=== PATIENT | female | born 1940 | race Caucasian/White ===

== ENCOUNTER 2016-07-17 15:22 | Inpatient (IN) ==
[2016-07-17] MEDS ORDERED: Acetaminophen 325 MG TABLET PO PRN (16:18)
[2016-07-17] MEDS ORDERED: Ibuprofen 400 MG TABLET PO PRN (16:18)
[2016-07-17] MEDS ORDERED: Loratadine 10 MG TABLET PO PRN (16:23)
[2016-07-17] MEDS: *HR* Enoxaparin 30 MG/0.3 ML SYRINGE SQ SCH (21:21)
[2016-07-17] MEDS: *HR* OxyCODONE Immed Rel 5 MG TABLET PO PRN (21:26)
[2016-07-18] MEDS: *HR* Enoxaparin 30 MG/0.3 ML SYRINGE SQ SCH ×2 (06:36→18:55)
[2016-07-18] MEDS ORDERED: Aspirin 81 MG TAB.CHEW PO SCH (09:00)
[2016-07-18] MEDS ORDERED: [UNRECOGNIZED DRUG - OTHER] PO SCH (09:00)
[2016-07-18] MEDS ORDERED: Aspirin Enteric Coated 325 MG Tablet PO SCH (09:00)
[2016-07-18] MEDS ORDERED: Fluticasone Propionate Nasal 50 MCG/SPRAY BOTTLE NS SCH (09:00)
[2016-07-18] MEDS: Multivit/Ca/Min/Fe/FA 1 TAB TABLET PO SCH (10:39)
[2016-07-18] MEDS: *HR* OxyCODONE Immed Rel 5 MG TABLET PO PRN (10:39)
--- NOTE | 2016-07-18 15:30 | Internal Med History&Physical ---
Date of Encounter: 07/21/16 Time of Encounter: 14:55 Assessment and Plan (1) Degenerative arthritis of knee, bilateral Current visit: No Status: Acute Now status post bilateral TKR. Continue PT and OT interventions. Qualifiers: Osteoarthritis type: primary Qualified Code(s): M17.0 - Bilateral primary osteoarthritis of knee (2) Acute blood loss anemia Current visit: No Status: Acute We will monitor CBC. Use Lovenox for DVT prophylaxis and discontinue aspirin (3) Acute hyponatremia Current visit: No Status: Acute Monitor sodium level (4) Hypothyroidism Current visit: No Status: Acute TSH was normal at 0.730 on 07/16/2016. Continue present dose Synthroid. Qualifiers: Hypothyroidism type: unspecified Qualified Code(s): E03.9 - Hypothyroidism , unspecified Internal Medicine - H&P: HPI Chief complaint: Bilateral TKR Admitted From: Hospital to Hospital Transfer Plans for Post Hospital Care: Home History of present illness: Ms. Vela is a 76 year old female who underwent elective bilateral TKR at [facility] . Her postop course was notable for anemia requiring blood transfusion. She had hyponatremia which improved prior to discharge. She was stabilized and transferred to [facility] swing bed for rehabilitation therapy prior to returning home to independent living. She states her pain level is 7/10 at present. She has diagnoses of DJD and osteoporosis. She denies gout or previous orthopedic surgeries. Past Med Surg Social Fam HX - Past Medical History Medical history: hyperlipidemia, thyroid disease Psychiatric history: depression - Social History Smoking Status: Never smoker Smokeless Tobacco Status: No Alcohol use: occasionally Drug use: none - Family History Sister Living Status: Still Living Hx Family Endocrine Disorder: Yes (DM) Internal Medicine - H&P: Meds Aspirin Enteric Coated [Aspirin EC] 325 mg PO DAILY #21 tablet. 07/13/16 [Rx] Enoxaparin [Lovenox] 30 mg SQ Q12HR #20 syr 07/13/16 [Rx] OxyCODONE Immed Rel [Roxicodone 5 MG] 5 - 10 mg PO Q6HR PRN #40 tablet 07/13/16 [Rx] Acetaminophen [Tylenol Arthritis] 650 mg PO Q8H PRN 07/14/16 [History] Aspirin 81 mg PO DAILY 07/14/16 [History] Biotin 5 mg PO DAILY 07/14/16 [History] Budesonide [Rhinocort Allergy] 1 spr NS DAILY 07/14/16 [History] Cetirizine HCl [Zyrtec] 10 mg PO HS 07/14/16 [History] Citalopram [CeleXA] 20 mg PO DAILY 07/14/16 [History] Ibuprofen [Motrin] 200 mg PO Q4HR PRN 07/14/16 [History] Levothyroxine [Synthroid] 75 mcg PO 0630 07/14/16 [History] Multivits,Ca,Min/Iron/FA/Lycop [Centrum Men's Tablet] 1 each PO DAILY 07/14/16 [ History] Simvastatin [Zocor] 20 mg PO HS 07/14/16 [History] Allergies No Known Allergies Allergy (Verified 07/14/16 07:18) All Systems PM: A 10-system review of systems was performed and is negative for pertinent findings except as documented above in the HPI. Review of systems: Gen.: She states her weight has been stable past few months Cardiovascular: She denies AL hypertension heart failure angina DVT or pulmonary embolus Respiratory: She is a lifelong nonsmoker and has no known chronic lung disease GI: She denies disorders of her liver gallbladder or exocrine pancreas : She denies hematuria dysuria or kidney stones Neurologic: She denies large distribution strokes or seizures. Endocrine: She has hypothyroidism and hyperlipidemia but denies diabetes Hematology/oncology: She has history of anemia but denies internal malignancies Psychiatric: She has depression but denies anxiety or other mental health issues Musk skeletal: As per history of present illness - Constitutional Vitals: Temp Pulse Resp BP Pulse Ox 98.5 F 95 16 157/77 94 L 07/18/16 07:09 07/18/16 15:05 07/18/16 15:05 07/18/16 15:05 07/18/16 15:05 Exam: Gen.: She is a well-developed well nourished female lying quietly in bed who appears in no acute distress. HEENT: Head is atraumatic and normocephalic. Eyes: EOMI. There is no scleral icterus. Mouth: Mucosa is moist. Neck: Supple and nontender. There is no thyromegaly or adenopathy noted. Heart: Regular without murmurs gallops or ectopics. Lungs: No wheezes or crackles are heard. Abdomen: Soft and nontender. No masses or guarding noted. Extremities: She is wearing Cryo/Cuff on both knees. She has 1+ edema of the dorsum of the feet bilaterally. She has minimal DJD changes of her hands. Neurologic: Mental status: She is awake but lethargic. She is able to answer questions appropriately. Cranial nerves: Smile is symmetric. Forehead wrinkles bilaterally. Tongue protrudes midline. EOMI. Motor: There is no pronator drift. Cerebellar: Finger to nose is intact bilaterally. Skin: Warm and dry Internal Med - H&P Results - Labs CBC & Chem 7: 07/20/16 06:10
[2016-07-18] MEDS: Fluticasone Propionate Nasal 50 MCG/SPRAY BOTTLE NS SCH (21:01)
[2016-07-19] MEDS: *HR* Enoxaparin 30 MG/0.3 ML SYRINGE SQ SCH ×2 (06:14→18:38)
[2016-07-19] MEDS: Multivit/Ca/Min/Fe/FA 1 TAB TABLET PO SCH (08:23)
[2016-07-19] MEDS: MOM Conc 10 ML UD.LIQ PO PRN (18:38)
[2016-07-19] MEDS: Fluticasone Propionate Nasal 50 MCG/SPRAY BOTTLE NS SCH (22:48)
[2016-07-20] MEDS: *HR* OxyCODONE Immed Rel 5 MG TABLET PO PRN ×2 (04:56→21:35)
[2016-07-20] MEDS: *HR* Enoxaparin 30 MG/0.3 ML SYRINGE SQ SCH ×2 (06:35→17:53)
[2016-07-20 06:55] LABS: Basophils # 0.1 K/mcL (0.0-0.2); Basophils % 0.7 %; Eosinophils # 0.5 K/mcL (0.0-0.6); Hematocrit 25.5 % (35.3-44.9); Hemoglobin 8.7 g/dL (11.5-15.4); Immature Granulocytes % 2.6 % (0-4); Lymphocytes # 1.6 K/mcL (0.6-4.6); Mean Corpuscular HGB Conc 34.1 g/dL (31.6-35.5); Mean Corpuscular Hemoglobin 30.6 pg (28.0-33.3); Mean Corpuscular Volume 89.8 fL (83.0-100.0); Mean Platelet Volume 9.3 fL (9.4-12.4); Monocytes % 9.8 %; Neutrophils # 6.9 K/mcL (1.6-8.9); Platelet Count 308 K/mcL (140-400); Red Blood Count 2.84 M/mcL (3.82-4.97); Red Cell Distribution Width 14.4 % (11.5-14.5); Segmented Neutrophils % 66.9 %
[2016-07-20] MEDS: Multivit/Ca/Min/Fe/FA 1 TAB TABLET PO SCH (08:23)
[2016-07-20] MEDS: Fluticasone Propionate Nasal 50 MCG/SPRAY BOTTLE NS SCH ×2 (09:14→20:23)
--- NOTE | 2016-07-20 11:07 | Internal Med Progress Note ---
Date of Encounter: 07/21/16 Time of Encounter: 10:50 - Assessment and plan (1) Degenerative arthritis of knee, bilateral Current Visit: No Status: Acute Assessment and plan: July 20. Status post bilateral TKR. Continue PT and OT interventions. Follow up with orthopedist as directed Qualifiers: Osteoarthritis type: primary Qualified Code(s): M17.0 - Bilateral primary osteoarthritis of knee (2) Acute blood loss anemia Current Visit: No Status: Acute Assessment and plan: July 20. We will monitor CBC. Use Lovenox for DVT prophylaxis (3) Acute hyponatremia Current Visit: No Status: Acute Assessment and plan: July 20. We will monitor sodium level (4) Hypothyroidism Current Visit: No Status: Acute Assessment and plan: July 20. TSH was normal at 0.730 on 07/16/2016. Continue present dose Synthroid Qualifiers: Hypothyroidism type: unspecified Qualified Code(s): E03.9 - Hypothyroidism , unspecified - Subjective Interval history: July 20. She has no new complaints. She had a bowel movement today - Constitutional Vitals: Temp Pulse Resp BP Pulse Ox 98.2 F 88 18 159/71 95 07/20/16 07:39 07/20/16 07:39 07/20/16 07:39 07/20/16 07:39 07/20/16 07:39 Exam: She is resting comfortably in bed. The Cryo/Cuff's are removed at this time. She has expected evolutionary ecchymosis in her legs from recent surgery. Dressings are in place on the incisions and appear generally clean and dry. Her affect is bright and cheerful. I reviewed her medications and lab results. Internal Medicine: Result - Labs CBC & Chem 7: 07/20/16 06:10 Labs: Short CBC 07/20/16 Range/Units 06:10 WBC 10.3 (4.3-11.1) K/mcL Hgb 8.7 L (11.5-15.4) g/dL Hct 25.5 L (35.3-44.9) % Plt Count 308 D (140-400) K/mcL Neutrophils # 6.9 (1.6-8.9) K/mcL Consult Discharge Plan - Plan Referrals: NO,PCP [Primary Care Provider] - 1 week
[2016-07-21] MEDS: *HR* Enoxaparin 30 MG/0.3 ML SYRINGE SQ SCH ×2 (06:01→20:00)
[2016-07-21] MEDS: *HR* OxyCODONE Immed Rel 5 MG TABLET PO PRN ×3 (06:04→22:03)
[2016-07-21] MEDS: Multivit/Ca/Min/Fe/FA 1 TAB TABLET PO SCH (08:16)
[2016-07-21] MEDS: Fluticasone Propionate Nasal 50 MCG/SPRAY BOTTLE NS SCH (20:01)
[2016-07-22] MEDS: *HR* Enoxaparin 30 MG/0.3 ML SYRINGE SQ SCH ×2 (05:43→18:24)
[2016-07-22] MEDS: MOM Conc 10 ML UD.LIQ PO PRN (07:51)
[2016-07-22] MEDS: Multivit/Ca/Min/Fe/FA 1 TAB TABLET PO SCH (07:52)
[2016-07-22] MEDS: *HR* OxyCODONE Immed Rel 5 MG TABLET PO PRN (14:34)
--- NOTE | 2016-07-22 18:01 | Internal Med Progress Note ---
Date of Encounter: 07/22/16 Time of Encounter: 17:50 - Assessment and plan (1) Degenerative arthritis of knee, bilateral Current Visit: No Status: Acute Assessment and plan: July 20. Status post bilateral TKR. Continue PT and OT interventions. Follow up with orthopedist as directed July 22. She states she has an orthopedist appointment July 24. Qualifiers: Osteoarthritis type: primary Qualified Code(s): M17.0 - Bilateral primary osteoarthritis of knee (2) Acute blood loss anemia Current Visit: No Status: Acute Assessment and plan: July 20. We will monitor CBC. Use Lovenox for DVT prophylaxis July 22. We will check CBC in a.m. (3) Acute hyponatremia Current Visit: No Status: Acute Assessment and plan: July 20. We will monitor sodium level July 22. We will check chemistry profile in a.m. (4) Hypothyroidism Current Visit: No Status: Acute Assessment and plan: July 20. TSH was normal at 0.730 on 07/16/2016. Continue present dose Synthroid Qualifiers: Hypothyroidism type: unspecified Qualified Code(s): E03.9 - Hypothyroidism , unspecified - Subjective Interval history: July 20. She has no new complaints. She had a bowel movement today July 22. She has no new complaints. She states her pain has lessened. - Constitutional Vitals: Temp Pulse Resp BP Pulse Ox 98.5 F 83 16 161/64 90 L 07/22/16 06:32 07/22/16 07:46 07/22/16 07:46 07/22/16 07:46 07/22/16 08:11 Exam: She is resting comfortably in bed and appears in no acute distress. Her extremities show no pitting edema. Her affect is bright and cheerful. I reviewed her medications and lab results. Internal Medicine: Result - Labs CBC & Chem 7: 07/20/16 06:10 Consult Discharge Plan - Plan Referrals: NO,PCP [Primary Care Provider] - 1 week
[2016-07-22] MEDS: Fluticasone Propionate Nasal 50 MCG/SPRAY BOTTLE NS SCH (22:37)
[2016-07-23] MEDS: Fluticasone Propionate Nasal 50 MCG/SPRAY BOTTLE NS SCH ×2 (00:04→19:56)
[2016-07-23] MEDS: *HR* Enoxaparin 30 MG/0.3 ML SYRINGE SQ SCH ×2 (05:59→18:14)
[2016-07-23 06:29] LABS: Basophils % 0.4 %; Eosinophils # 0.5 K/mcL (0.0-0.6); Eosinophils % 4.3 %; Hematocrit 27.4 % (35.3-44.9); Hemoglobin 9.3 g/dL (11.5-15.4); Lymphocytes # 2.1 K/mcL (0.6-4.6); Mean Corpuscular HGB Conc 33.9 g/dL (31.6-35.5); Mean Corpuscular Hemoglobin 30.6 pg (28.0-33.3); Mean Corpuscular Volume 90.1 fL (83.0-100.0); Mean Platelet Volume 8.9 fL (9.4-12.4); Monocytes % 8.5 %; Platelet Count 514 K/mcL (140-400); Red Blood Count 3.04 M/mcL (3.82-4.97); Red Cell Distribution Width 14.7 % (11.5-14.5); Segmented Neutrophils % 63.8 %
[2016-07-23 06:58] LABS: Neutrophils # 7.2 K/mcL (1.6-8.9)
[2016-07-23 07:08] LABS: BUN/Creatinine Ratio 14 (6-26); Blood Urea Nitrogen 10 mg/dL (7-20); Calcium 9.1 mg/dL (8.6-10.8); Carbon Dioxide 23 mEq/L (19-29); Chloride 100 mEq/L (98-109); Glucose 101 mg/dL (70-99); Osmolality,Calculated 277 (280-300); Potassium 4.1 mEq/L (3.5-4.5); Sodium 134 mEq/L (136-145); eGFR For African Americans > 60 (> 60); eGFR For Non-African Americans > 60 (> 60)
[2016-07-23] MEDS: Multivit/Ca/Min/Fe/FA 1 TAB TABLET PO SCH (08:01)
[2016-07-23] MEDS: *HR* OxyCODONE Immed Rel 5 MG TABLET PO PRN (10:10)
[2016-07-24] MEDS: *HR* Enoxaparin 30 MG/0.3 ML SYRINGE SQ SCH ×2 (05:07→17:59)
[2016-07-24] MEDS: Multivit/Ca/Min/Fe/FA 1 TAB TABLET PO SCH (08:09)
[2016-07-24] MEDS ORDERED: Ondansetron ODT 4 MG TAB.RAPDIS PO ONE (08:13)
[2016-07-24] MEDS: Fluticasone Propionate Nasal 50 MCG/SPRAY BOTTLE NS SCH (21:15)
[2016-07-25] MEDS: *HR* Enoxaparin 30 MG/0.3 ML SYRINGE SQ SCH ×2 (05:41→17:59)
[2016-07-25] MEDS: *HR* OxyCODONE Immed Rel 5 MG TABLET PO PRN ×2 (08:25→22:50)
[2016-07-25] MEDS: Multivit/Ca/Min/Fe/FA 1 TAB TABLET PO SCH (08:26)
--- NOTE | 2016-07-25 13:52 | Internal Med Progress Note ---
Date of Encounter: 07/25/16 Time of Encounter: 14:00 - Assessment and plan (1) Degenerative arthritis of knee, bilateral Current Visit: No Status: Acute Assessment and plan: July 20. Status post bilateral TKR. Continue PT and OT interventions. Follow up with orthopedist as directed July 22. She states she has an orthopedist appointment July 24. July 25. Continue present management Qualifiers: Osteoarthritis type: primary Qualified Code(s): M17.0 - Bilateral primary osteoarthritis of knee (2) Acute blood loss anemia Current Visit: No Status: Acute Assessment and plan: July 20. We will monitor CBC. Use Lovenox for DVT prophylaxis July 22. We will check CBC in a.m. July 25. Hemoglobin has improved to 9.3. Continue present management (3) Acute hyponatremia Current Visit: No Status: Acute Assessment and plan: July 20. We will monitor sodium level July 22. We will check chemistry profile in a.m. Every 24. Sodium has risen to 134. Will not workup further (4) Hypothyroidism Current Visit: No Status: Acute Assessment and plan: July 20. TSH was normal at 0.730 on 07/16/2016. Continue present dose Synthroid Qualifiers: Hypothyroidism type: unspecified Qualified Code(s): E03.9 - Hypothyroidism , unspecified - Subjective Interval history: July 20. She has no new complaints. She had a bowel movement today July 22. She has no new complaints. She states her pain has lessened. July 25. She has no new complaints. Her pain continues to lessen. She had a follow-up visit at the orthopedist office yesterday. X-rays and venous ultrasound were done and were unremarkable. - Constitutional Vitals: Temp Pulse Resp BP Pulse Ox 98.0 F 75 19 166/74 95 07/24/16 18:58 07/25/16 13:36 07/25/16 13:36 07/25/16 13:36 07/25/16 13:36 Exam: She has resolving ecchymosis of the dependent portion of her legs bilaterally. There is no pitting edema. Her affect is bright and cheerful. I reviewed her medications and lab results. Internal Medicine: Result - Labs CBC & Chem 7: 07/23/16 05:17 07/23/16 05:17 Consult Discharge Plan - Plan Referrals: NO,PCP [Primary Care Provider] - 1 week
[2016-07-25] MEDS: Fluticasone Propionate Nasal 50 MCG/SPRAY BOTTLE NS SCH (22:47)
[2016-07-26] MEDS: *HR* OxyCODONE Immed Rel 5 MG TABLET PO PRN (02:38)
[2016-07-26 05:53] LABS: Basophils # 0.1 K/mcL (0.0-0.2); Basophils % 0.7 %; Eosinophils # 0.4 K/mcL (0.0-0.6); Eosinophils % 3.5 %; Hematocrit 28.4 % (35.3-44.9); Hemoglobin 9.4 g/dL (11.5-15.4); Lymphocytes % 16.1 %; Mean Corpuscular HGB Conc 33.1 g/dL (31.6-35.5); Mean Corpuscular Hemoglobin 30.9 pg (28.0-33.3); Mean Corpuscular Volume 93.4 fL (83.0-100.0); Mean Platelet Volume 8.9 fL (9.4-12.4); Platelet Count 721 K/mcL (140-400); Red Blood Count 3.04 M/mcL (3.82-4.97); Segmented Neutrophils % 68.7 %
[2016-07-26] MEDS: *HR* Enoxaparin 30 MG/0.3 ML SYRINGE SQ SCH ×2 (06:08→18:20)
[2016-07-26 06:38] LABS: Neutrophils # 8.5 K/mcL (1.6-8.9)
[2016-07-26] MEDS: Multivit/Ca/Min/Fe/FA 1 TAB TABLET PO SCH (09:24)
[2016-07-26] MEDS: Fluticasone Propionate Nasal 50 MCG/SPRAY BOTTLE NS SCH (20:30)
[2016-07-27] MEDS: *HR* OxyCODONE Immed Rel 5 MG TABLET PO PRN (00:42)
[2016-07-27] MEDS: *HR* Enoxaparin 30 MG/0.3 ML SYRINGE SQ SCH ×2 (04:41→17:47)
[2016-07-27] MEDS: Multivit/Ca/Min/Fe/FA 1 TAB TABLET PO SCH (09:14)
--- NOTE | 2016-07-27 11:53 | Internal Med Progress Note ---
Date of Encounter: 07/27/16 Time of Encounter: 11:35 - Assessment and plan (1) Degenerative arthritis of knee, bilateral Current Visit: No Status: Acute Assessment and plan: July 20. Status post bilateral TKR. Continue PT and OT interventions. Follow up with orthopedist as directed July 22. She states she has an orthopedist appointment July 24. July 25. Continue present management Qualifiers: Osteoarthritis type: primary Qualified Code(s): M17.0 - Bilateral primary osteoarthritis of knee (2) Acute blood loss anemia Current Visit: No Status: Acute Assessment and plan: July 20. We will monitor CBC. Use Lovenox for DVT prophylaxis July 22. We will check CBC in a.m. July 25. Hemoglobin has improved to 9.3. Continue present management (3) Acute hyponatremia Current Visit: No Status: Acute Assessment and plan: July 20. We will monitor sodium level July 22. We will check chemistry profile in a.m. July 25. Sodium has risen to 134. Will not workup further (4) Hypothyroidism Current Visit: No Status: Acute Assessment and plan: July 20. TSH was normal at 0.730 on 07/16/2016. Continue present dose Synthroid Qualifiers: Hypothyroidism type: unspecified Qualified Code(s): E03.9 - Hypothyroidism , unspecified - Subjective Interval history: July 20. She has no new complaints. She had a bowel movement today July 22. She has no new complaints. She states her pain has lessened. July 25. She has no new complaints. Her pain continues to lessen. She had a follow-up visit at the orthopedist office yesterday. X-rays and venous ultrasound were done and were unremarkable. July 27. She has no new complaints and states her leg pain continues to lessen. - Constitutional Vitals: Temp Pulse Resp BP Pulse Ox 97.2 F L 73 16 153/76 93 L 07/27/16 11:35 07/27/16 11:35 07/27/16 11:35 07/27/16 11:35 07/27/16 11:35 Exam: She is resting comfortably in bed. She has no edema of her lower legs. Her leg discoloration from surgery is lessening. The incisions are clean and dry. I reviewed her medications and lab results. Internal Medicine: Result - Labs CBC & Chem 7: 07/26/16 04:10 07/23/16 05:17 Consult Discharge Plan - Plan Referrals: NO,PCP [Primary Care Provider] - 1 week
[2016-07-27] MEDS: Fluticasone Propionate Nasal 50 MCG/SPRAY BOTTLE NS SCH (20:29)
[2016-07-28] MEDS: *HR* Enoxaparin 30 MG/0.3 ML SYRINGE SQ SCH ×2 (05:34→19:58)
[2016-07-28] MEDS: Multivit/Ca/Min/Fe/FA 1 TAB TABLET PO SCH (09:12)
[2016-07-28] MEDS: Fluticasone Propionate Nasal 50 MCG/SPRAY BOTTLE NS SCH (20:03)
[2016-07-29] MEDS: Multivit/Ca/Min/Fe/FA 1 TAB TABLET PO SCH (07:59)
[2016-07-29] MEDS: *HR* Enoxaparin 30 MG/0.3 ML SYRINGE SQ SCH ×2 (08:02→21:58)
--- NOTE | 2016-07-29 12:37 | Internal Med Progress Note ---
Date of Encounter: 07/29/16 Time of Encounter: 12:30 - Assessment and plan (1) Degenerative arthritis of knee, bilateral Current Visit: No Status: Acute Assessment and plan: July 20. Status post bilateral TKR. Continue PT and OT interventions. Follow up with orthopedist as directed July 22. She states she has an orthopedist appointment July 24. July 25. Continue present management. July 29. Bradford will be removed tomorrow Qualifiers: Osteoarthritis type: primary Qualified Code(s): M17.0 - Bilateral primary osteoarthritis of knee (2) Acute blood loss anemia Current Visit: No Status: Acute Assessment and plan: July 20. We will monitor CBC. Use Lovenox for DVT prophylaxis July 22. We will check CBC in a.m. July 25. Hemoglobin has improved to 9.3. Continue present management July 29. We will recheck labs in a.m. (3) Acute hyponatremia Current Visit: No Status: Acute Assessment and plan: July 20. We will monitor sodium level July 22. We will check chemistry profile in a.m. July 25. Sodium has risen to 134. Will not workup further (4) Hypothyroidism Current Visit: No Status: Acute Assessment and plan: July 20. TSH was normal at 0.730 on 07/16/2016. Continue present dose Synthroid Qualifiers: Hypothyroidism type: unspecified Qualified Code(s): E03.9 - Hypothyroidism , unspecified - Subjective Interval history: July 20. She has no new complaints. She had a bowel movement today July 22. She has no new complaints. She states her pain has lessened. July 25. She has no new complaints. Her pain continues to lessen. She had a follow-up visit at the orthopedist office yesterday. X-rays and venous ultrasound were done and were unremarkable. July 27. She has no new complaints and states her leg pain continues to lessen. July 29. She has no new complaints. - Constitutional Vitals: Temp Pulse Resp BP Pulse Ox 97.4 F L 75 16 155/96 98 07/29/16 08:19 07/29/16 09:29 07/29/16 09:29 07/29/16 09:29 07/29/16 09:29 Exam: She is resting comfortably in bed. She has no extremity edema. Her affect is bright and cheerful. Reviewed her medications and past lab results. Internal Medicine: Result - Labs CBC & Chem 7: 07/26/16 04:10 07/23/16 05:17 Consult Discharge Plan - Plan Referrals: NO,PCP [Primary Care Provider] - 1 week
[2016-07-29] MEDS: *HR* OxyCODONE Immed Rel 5 MG TABLET PO PRN (13:31)
[2016-07-29] MEDS: Fluticasone Propionate Nasal 50 MCG/SPRAY BOTTLE NS SCH (21:58)
[2016-07-30 05:03] LABS: Basophils # 0.1 K/mcL (0.0-0.2); Basophils % 0.8 %; Eosinophils # 0.3 K/mcL (0.0-0.6); Eosinophils % 3.2 %; Hematocrit 30.2 % (35.3-44.9); Immature Granulocytes % 1.1 % (0-4); Lymphocytes # 2.1 K/mcL (0.6-4.6); Lymphocytes % 24.5 %; Mean Corpuscular HGB Conc 33.1 g/dL (31.6-35.5); Mean Corpuscular Hemoglobin 30.6 pg (28.0-33.3); Mean Corpuscular Volume 92.4 fL (83.0-100.0); Mean Platelet Volume 8.8 fL (9.4-12.4); Monocytes # 0.7 K/mcL (0.0-1.3); Monocytes % 7.7 %; Neutrophils # 5.3 K/mcL (1.6-8.9); Platelet Count 879 K/mcL (140-400); Red Blood Count 3.27 M/mcL (3.82-4.97); Segmented Neutrophils % 62.7 %
[2016-07-30] MEDS: *HR* Enoxaparin 30 MG/0.3 ML SYRINGE SQ SCH ×2 (05:43→20:13)
[2016-07-30 10:11] LABS: % Iron Saturation 20 % (15-50); Iron 54 mcg/dL (50-170); Transferrin 193 mg/dL (180-382)
[2016-07-30 10:34] LABS: Ferritin 1421 ng/ml (5-204)
[2016-07-30] MEDS: Multivit/Ca/Min/Fe/FA 1 TAB TABLET PO SCH (10:39)
[2016-07-30 10:47] LABS: Folate 15.7 ng/mL (7.0-31.4)
[2016-07-30] MEDS: *HR* OxyCODONE Immed Rel 5 MG TABLET PO PRN (12:50)
[2016-07-30] MEDS: Fluticasone Propionate Nasal 50 MCG/SPRAY BOTTLE NS SCH (20:13)
[2016-07-31] MEDS: *HR* Enoxaparin 30 MG/0.3 ML SYRINGE SQ SCH ×2 (04:54→18:06)
[2016-07-31] MEDS: Multivit/Ca/Min/Fe/FA 1 TAB TABLET PO SCH (08:27)
[2016-07-31] MEDS: Fluticasone Propionate Nasal 50 MCG/SPRAY BOTTLE NS SCH (23:54)
[2016-08-01] MEDS: *HR* Enoxaparin 30 MG/0.3 ML SYRINGE SQ SCH ×2 (05:42→19:33)
[2016-08-01] MEDS: Multivit/Ca/Min/Fe/FA 1 TAB TABLET PO SCH (08:20)
--- NOTE | 2016-08-01 09:53 | Internal Med Progress Note ---
Date of Encounter: 08/01/16 Time of Encounter: 09:35 - Assessment and plan (1) Degenerative arthritis of knee, bilateral Current Visit: No Status: Acute Assessment and plan: July 20. Status post bilateral TKR. Continue PT and OT interventions. Follow up with orthopedist as directed July 22. She states she has an orthopedist appointment July 24. July 25. Continue present management. July 29. Eleele will be removed tomorrow August 01. Continue therapy. Anticipate discharge home tomorrow Qualifiers: Osteoarthritis type: primary Qualified Code(s): M17.0 - Bilateral primary osteoarthritis of knee (2) Acute blood loss anemia Current Visit: No Status: Acute Assessment and plan: July 20. We will monitor CBC. Use Lovenox for DVT prophylaxis July 22. We will check CBC in a.m. July 25. Hemoglobin has improved to 9.3. Continue present management July 29. We will recheck labs in a.m. August 01. Hemoglobin improved to 10.0. (3) Acute hyponatremia Current Visit: No Status: Acute Assessment and plan: July 20. We will monitor sodium level July 22. We will check chemistry profile in a.m. July 25. Sodium has risen to 134. Will not workup further (4) Hypothyroidism Current Visit: No Status: Acute Assessment and plan: July 20. TSH was normal at 0.730 on 07/16/2016. Continue present dose Synthroid Qualifiers: Hypothyroidism type: unspecified Qualified Code(s): E03.9 - Hypothyroidism , unspecified - Subjective Interval history: July 20. She has no new complaints. She had a bowel movement today July 22. She has no new complaints. She states her pain has lessened. July 25. She has no new complaints. Her pain continues to lessen. She had a follow-up visit at the orthopedist office yesterday. X-rays and venous ultrasound were done and were unremarkable. July 27. She has no new complaints and states her leg pain continues to lessen. July 29. She has no new complaints. August 01. She has no new complaints. She is anticipating discharge home tomorrow. - Constitutional Vitals: Temp Pulse Resp BP Pulse Ox 98.2 F 87 18 170/77 97 08/01/16 07:46 08/01/16 07:46 08/01/16 07:46 08/01/16 07:46 08/01/16 07:46 Exam: Her affect is bright and cheerful. Her knee incisions have reagan removed now with foam dressing removed also. There is no significant erythema or drainage seen. Her affect is bright and cheerful. I reviewed her medications and lab results. Internal Medicine: Result - Labs CBC & Chem 7: 07/30/16 04:17 07/23/16 05:17 Consult Discharge Plan - Plan Referrals: NO,PCP [Primary Care Provider] - 1 week
[2016-08-01] MEDS: Fluticasone Propionate Nasal 50 MCG/SPRAY BOTTLE NS SCH (21:58)
[2016-08-02] MEDS: *HR* Enoxaparin 30 MG/0.3 ML SYRINGE SQ SCH (06:22)
[2016-08-02 07:14] VITALS: BP 148/75
--- NOTE | 2016-08-02 08:38 | Discharge Summary ---
Date of Encounter: 08/02/16 Time of Encounter: 08:25 - Discharge Diagnosis (1) Degenerative arthritis of knee, bilateral Priority: Primary Status: Acute Qualifiers: Osteoarthritis type: primary Qualified Code(s): M17.0 - Bilateral primary osteoarthritis of knee (2) Acute blood loss anemia Priority: Secondary Status: Acute (3) Acute hyponatremia Priority: Secondary Status: Acute (4) Hypothyroidism Priority: Secondary Status: Chronic Qualifiers: Hypothyroidism type: unspecified Qualified Code(s): E03.9 - Hypothyroidism , unspecified - Discharge Medications Prescriptions: Tramadol HCl [Ultram] 50 mg PO Q6H PRN #20 tab PRN Reason: Pain Home Medications: OxyCODONE Immed Rel [Roxicodone 5 MG] 5 - 10 mg PO Q6HR PRN #40 tablet 07/13/16 [Rx] Aspirin 81 mg PO DAILY 07/14/16 [History] Biotin 5 mg PO DAILY 07/14/16 [History] Budesonide [Rhinocort Allergy] 1 spr NS DAILY 07/14/16 [History] Citalopram [CeleXA] 20 mg PO DAILY 07/14/16 [History] Levothyroxine [Synthroid] 75 mcg PO 0630 07/14/16 [History] Multivits,Ca,Min/Iron/FA/Lycop [Centrum Men's Tablet] 1 each PO DAILY 07/14/16 [ History] Simvastatin [Zocor] 20 mg PO HS 07/14/16 [History] Acetaminophen [Tylenol] 500 mg PO Q6HR tablet 08/02/16 [Rx] Tramadol HCl [Ultram] 50 mg PO Q6H PRN #20 tab 08/02/16 [Rx] Allergies/Adverse Reactions: Allergies No Known Allergies Allergy (Verified 07/14/16 07:18) Date of admission: 07/17/16 15:24 Primary care physician: Alex Mercer CNP Consults: 07/17/16 16:10 Consult to Occupational Therapy [CONS] Routine Comment: evaluate, develop, and implement plan of care Consult to Physical Therapy [CONS] Routine Comment: evaluate, develop, and implement plan of care Consult to Welding Machine Operator Submerged Arc [CONS] Routine Reason for SW Consult: Discharge Planning - Patient Status Disposition: Home Health Service Overall status at discharge: patient is progressing back to baseline - Discharge Instructions Follow Up With: Mercre,Alex R, EMBROIDERY DESIGNER [Advanced Practice Nurse] - 1 week - Diet and Activity Activity: as per physical therapy Diet: advance to your usual diet Hospital course: Ms. Vela is a 76 year old female who underwent elective bilateral TKR at [facility] 07/14/2016. Her postop course was notable for anemia requiring blood transfusion. She had hyponatremia which improved prior to discharge. She was stabilized and transferred to [facility] swing bed for rehabilitation therapy prior to returning home to independent living. Initial orders were written by the discharging physicians at [facility]. I saw her on July 18 and performed the swing bed history and physical. She had physical therapy and occupational therapy evaluations with ongoing intervention. She made satisfactory progress in therapy. Her pain was adequately controlled on scheduled Tylenol and tramadol. On August 02 she felt stable for discharge home. She will follow with her orthopedist as scheduled on August 12. Her hemoglobin improved to 10.0 on 07/30/2016. Anemia testing showed no factor deficiency. Sodium level estee to 134 on July 23. No further workup or interventions were done. She will follow with her PCP within one week. She will have home health services. - Time Spent with Patient Total time spent providing and/or coordinating discharge services: - Constitutional Vitals: Temp Pulse Resp BP Pulse Ox 97.8 F 75 16 148/75 97 08/02/16 07:11 08/02/16 07:11 08/02/16 07:11 08/02/16 07:11 08/02/16 07:11
--- NOTE | 2016-08-02 08:48 | Physician Discharge Referral ---
Home Health/Hosp Referral Info Transfer to: Home Health Attending Provider: Jasen Provider in Charge Post Discharge: PCP (Alex Mercer CNP) - Diagnosis (1) Degenerative arthritis of knee, bilateral Priority: Primary Status: Acute (2) Acute blood loss anemia Priority: Secondary Status: Acute (3) Acute hyponatremia Priority: Secondary Status: Acute (4) Hypothyroidism Priority: Secondary Status: Chronic - Respiratory Orders Smoking Cessation: Smoking cessation has been advised. For more information, call the [place] Tobacco Quit Line at 9-856-KOSE-NOW. - Diet/Nutrition Diet/Nutrition Orders: Regular - Activity Activity Orders: Ambulate - Services Needed Following services are medically necessary services: Nursing, Home Health Aide, Physical Therapy, Occupational Therapy - Transfer Medications Prescriptions: Tramadol HCl [Ultram] 50 mg PO Q6H PRN #20 tab PRN Reason: Pain Home Medications: OxyCODONE Immed Rel [Roxicodone 5 MG] 5 - 10 mg PO Q6HR PRN #40 tablet 07/13/16 [Rx] Aspirin 81 mg PO DAILY 07/14/16 [History] Biotin 5 mg PO DAILY 07/14/16 [History] Budesonide [Rhinocort Allergy] 1 spr NS DAILY 07/14/16 [History] Citalopram [CeleXA] 20 mg PO DAILY 07/14/16 [History] Levothyroxine [Synthroid] 75 mcg PO 0630 07/14/16 [History] Multivits,Ca,Min/Iron/FA/Lycop [Centrum Men's Tablet] 1 each PO DAILY 07/14/16 [ History] Simvastatin [Zocor] 20 mg PO HS 07/14/16 [History] Acetaminophen [Tylenol] 500 mg PO Q6HR tablet 08/02/16 [Rx] Tramadol HCl [Ultram] 50 mg PO Q6H PRN #20 tab 08/02/16 [Rx] Allergies/Adverse Reactions: Allergies No Known Allergies Allergy (Verified 07/14/16 07:18) Certification: Further, I certify that my clinical findings support that this patient is homebound (i.e. absences from home require considerable and taxing effort and are for medical reasons or yazidism services or infrequently or short duration when for other reasons) because: Homebound Reason: Post-surgery restriction and or conditions limit ability to leave home, Leaving home requires considerable and taxing effort due to condition (Bilateral knee replacements with limited mobility.) Attestation: My signature below is to certify that this patient is under my care and that I, or nurse practitioner, or a physician's assistant customer service manager working with me, has a face-to -face encounter with this patient.
[2016-08-02] MEDS: Multivit/Ca/Min/Fe/FA 1 TAB TABLET PO SCH (11:23)
== END 2016-08-02 11:40 | disposition home health service (06) | DRG 560 ==
LOC: INPPIK 15:24
PROVIDERS: ADMIT Internal Medicine; ATTEND Internal Medicine